=== PATIENT | female | born 1955 | race Caucasian/White ===

== ENCOUNTER 2017-07-22 10:46 | Emergency (ER) | payer OTHER ==
[~2017-07-22] VITALS: Ht 167.6 cm; Wt 79.5 kg
[~2017-07-22 10:46] MED LIST: ABILIFY10 MG PO; ABILIFY15 MG PO; ABILIFY2 MG PO; ADDERALL10 M1 PO; ADDERALL20 MG PO; ADVAIR HFA120 INHALA IH; ADVIL,NUPRIN,M200 MG PO; ALEVE220 M2 PO; AMBIEN10 M1 PO; AMBIEN5 M1 PO; AMPHETAMINE SAL20 MG; ANEXSIA 5-3251 EACH; ASPIR-LOW81 MG PO; ATARAX,VISTARIL25 M1 PO; ATARAX,VISTARIL25 MG; ATROVENT H200 INHALA IH; AZITHROMYCIN250 MG; BENZONATATE100 MG PO; BUSPAR10 MG; BUSPAR10 MG PO; Bentyl PO; CEFDINIR300 MG PO; CIPRO500 MG PO; CLEOCIN300 MG; CYANOCOBAL1000 MCG/2 IM; CYMBALTA20 MG PO; CYMBALTA60 MG; CYMBALTA60 MG PO; Cipro PO; Cymbalta PO; DESYREL 150 MG150 MG PO; DESYREL100 MG PO; DILAUDID4 MG PO; EPIPEN JR.0.15 MG/0. IM; ERGOCALCIF50000 UNIT PO; Ecotrin PO; FLEXERIL10 MG PO; FLONASE16 G1 BOTH NARES; FLUOXETINE HCL20 MG; FLUOXETINE HCL40 MG; FLUOXETINE HCL60 MG PO; Flagyl PO; GABAPENTIN100 MG PO; GABAPENTIN600 MG PO; HYDROCODON-ACE1 EACH; HYDROCODONE-HO473 ML; KLONOPIN0.5 M1 PO; LEVETIRACETAM250 MG PO; LIDOCAINE700 MG TD; LODINE400 MG PO; LOPID600 M1 PO; MACROBID100 MG PO; MEDROL DOSEPAK4 MG PO; MELOXICAM15 MG PO; MORPHINE SULFAT15 M1 PO; MORPHINE SULFAT15 MG PO; MORPHINE SULFAT30 M1 PO; MORPHINE SULFAT30 M2 PO; MOTRIN800 MG PO; MYCOSTATIN 100,60 ML PO; NAPROSYN500 MG PO; NEURONTIN300 MG PO; NEXIUM40 MG PO; NORCO 5/3251 TABLET PO; NORTRIPTYLINE H25 MG PO; OMEPRAZOLE40 M1 PO; OXYCODONE HCL5 M1 PO; OXYCODONE HCL5 MG; OXYCODONE HCL5 MG PO; OXYCODONE-ACET1 EACH; OxyCODONE PO; PEPCID20 MG PO; PERCOCET 5/31 TABLET PO; PRAVACHOL80 MG PO; PRAVASTATIN SOD80 MG PO; PREDNISONE10 MG; PREDNISONE20 MG PO; PREDNISONE5 MG PO; PREMARIN0.625 MG PO; PRILOSEC10 MG PO; PRILOSEC20 MG PO; PROAIR HFA8.5 GM; PROAIR HFA8.5 GM IH; PROMETHAZINE HC25 M1 PO; PROZAC10 M1; PROZAC10 MG PO; PROZAC20 MG PO; PROZAC40 MG PO; PROzac PO; PYRIDIUM200 MG PO; PriLOSEC PO; RESTORIL15 MG PO; ROXICODONE5 MG PO; SIMVASTATIN40 M1 PO; SOMA250 MG PO; SOMA350 M1; SOMA350 MG PO; SONATA10 MG PO; TORADOL10 MG PO; TRAZODONE HCL100 MG PO; Tylenol Regular Stre PO; ULTRAM50 MG PO; VENTOLIN HFA18 GM IH; VITAMIN D50000 UNI4 PO; VOLTAREN75 MG PO; WELLBUTRIN SR150 MG PO; ZALEPLON10 MG PO; ZOCOR40 MG PO; ZOFRAN ODT4 MG PO; ZOFRAN ODT8 MG PO; ZOFRAN4 MG PO; ZOLPIDEM TARTRA10 MG; ZOLPIDEM TARTRAT5 MG; oxyCODONE PO
[2017-07-22 12:08] LABS: EOSINOPHIL (%) 3.4 % (0-5); EOSINOPHIL COUNT 0.2 K/uL (0-0.3); HEMATOCRIT 36.7 % (36.0-46.0); IMMATURE GRANULOCYTE (%) 0.2 % (0.0-0.7); INSTRUMENT ABS NEUTROPHIL CT 3.5 K/uL; LYMPHOCYTE COUNT 2.3 K/uL (1.0-2.8); MCH 29.8 PG (29.0-34.0); MCHC 31.6 G/DL (30.0-36.0); MCV 94.3 FL (83-99); MEAN PLAT.VOLUME 9.8 uM^3 (9.5-12.4); MONOCYTE (%) 6.5 % (3-12); MONOCYTE COUNT 0.4 K/uL (0-0.8); NEUTROPHIL (%) 53.5 % (45-76); NEUTROPHIL COUNT 3.5 K/uL (1.8-6.4); PLATELET COUNT 271 K/uL (156-360); RBC DIS.WIDTH-CV 13.4 % (11.8-14.6); RBC DIS.WIDTH-SD 46.5 % (39-53); RED BLOOD COUNT 3.89 M/uL (3.80-5.20); WHITE BLOOD COUNT 6.5 K/uL (4.1-10.2)
[2017-07-22 12:13] LABS: INTER. NORMALIZED RATIO 0.9; PROTHROMBIN TIME 10.2 SEC (10.2-12.9)
[2017-07-22 12:16] LABS: CHLORIDE 107 mEq/L (99-109); POTASSIUM 3.9 mEq/L (3.7-5.4); PTT 26.8 SEC (25-37); SODIUM 140 mEq/L (136-147)
[2017-07-22 12:19] LABS: GLUCOSE 95 mg/dL (70-99)
[2017-07-22 12:20] LABS: ANION GAP 9 MEQ/L (2-14); TOTAL BILIRUBIN 0.2 mg/dL (0.0-1.0)
[2017-07-22 12:22] LABS: ALKALINE PHOSPHATASE 110 IU/L (3-129); GFR ESTIMATE (CALCULATED) > 59 mL/min/
[2017-07-22 12:23] LABS: UREA NITROGEN (BUN) 11 mg/dL (9-23)
[2017-07-22 12:24] LABS: DIRECT BILIRUBIN 0.1 mg/dL (0.0-0.3)
[2017-07-22 12:26] LABS: LIPASE 74 U/L (1.0-51.0)
[2017-07-22 12:28] LABS: TROP-I INTERPRETATION NEGATIVE; TROPONIN-I < 0.01 ng/mL (0.0-0.30)
[2017-07-22] MEDS ORDERED: IBUPROFEN600 MG PO (14:53)
[2017-07-22] MEDS ORDERED: PREDNISONE50 MG PO (14:53)
[2017-07-22 16:13] VITALS: BP 146/91
== END 2017-07-22 16:14 | disposition home or self-care (01) ==
LOC: EME 10:46
PROVIDERS: Emergency Medicine
DX: R07.89 Other chest pain (principal); J44.9 Chronic obstructive pulmonary disease, unspecified; K21.9 Gastro-esophageal reflux disease without esophagitis; F32.9 Major depressive disorder, single episode, unspecified; F41.9 Anxiety disorder, unspecified; E53.8 Deficiency of other specified B group vitamins; B19.20 Unspecified viral hepatitis C without hepatic coma; Z86.73 Personal history of transient ischemic attack (TIA), and cerebral infarction without residual deficits; Z87.19 Personal history of other diseases of the digestive system; Z87.891 Personal history of nicotine dependence; Z88.0 Allergy status to penicillin
CPT/HCPCS: 71020; 71275; 80048; 80076; 83690; 83880; 84484; 85025; 85610; 85730; 93005; 94640; 99281; 99285; J2270; J2930

== ENCOUNTER 2017-07-27 14:46 | Observation (INO) | payer OTHER ==
[~2017-07-27] VITALS: Ht 167.6 cm; Wt 76.5 kg
[~2017-07-27 14:46] MED LIST changes: +IBUPROFEN600 MG PO; +PREDNISONE50 MG PO
[2017-07-27 15:10] LABS: HEMATOCRIT 37.8 % (36.0-46.0); MCH 30.4 PG (29.0-34.0); MCHC 32.8 G/DL (30.0-36.0); MCV 92.6 FL (83-99); MEAN PLAT.VOLUME 9.6 uM^3 (9.5-12.4); PLATELET COUNT 353 K/uL (156-360); RBC DIS.WIDTH-CV 13.2 % (11.8-14.6); RBC DIS.WIDTH-SD 45.2 % (39-53); RED BLOOD COUNT 4.08 M/uL (3.80-5.20); WHITE BLOOD COUNT 10.2 K/uL (4.1-10.2)
[2017-07-27 15:19] LABS: CHLORIDE 111 mEq/L (99-109); POTASSIUM 3.6 mEq/L (3.7-5.4); SODIUM 138 mEq/L (136-147)
[2017-07-27 15:21] LABS: GLUCOSE 175 mg/dL (70-99)
[2017-07-27 15:22] LABS: ANION GAP 11 MEQ/L (2-14)
[2017-07-27 15:25] LABS: GFR ESTIMATE (CALCULATED) 44 mL/min/
[2017-07-27 15:27] LABS: UREA NITROGEN (BUN) 26 mg/dL (9-23)
[2017-07-27 15:32] LABS: TROP-I INTERPRETATION NEGATIVE; TROPONIN-I < 0.01 ng/mL (0.0-0.30)
[2017-07-27 16:46] LABS: CHLORIDE 111 mEq/L (99-109); POTASSIUM 3.6 mEq/L (3.7-5.4); SODIUM 138 mEq/L (136-147)
[2017-07-27 16:48] LABS: GLUCOSE 178 mg/dL (70-99)
[2017-07-27 16:49] LABS: ANION GAP 12 MEQ/L (2-14)
[2017-07-27 16:52] LABS: ALKALINE PHOSPHATASE 99 IU/L (3-129); GFR ESTIMATE (CALCULATED) 40 mL/min/
[2017-07-27 16:53] LABS: UREA NITROGEN (BUN) 27 mg/dL (9-23)
[2017-07-27 17:00] LABS: TOTAL BILIRUBIN 0.3 mg/dL (0.0-1.0)
[2017-07-27] MEDS ORDERED: IBUPROFEN600 MG PO (18:27)
[2017-07-27] MEDS ORDERED: WELLBUTRIN XL150 MG PO (18:29)
[2017-07-27] MEDS ORDERED: LOVASTATIN20 MG PO (18:29)
[2017-07-27] MEDS ORDERED: OXYCODONE HCL10 MG PO (18:29)
[2017-07-27] MEDS ORDERED: ADDERALL10 MG PO (18:29)
[2017-07-27] MEDS ORDERED: SONATA10 MG PO (18:30)
[2017-07-27 20:38] VITALS: BP 141/72
[2017-07-27 21:11] LABS: TROP-I INTERPRETATION NEGATIVE; TROPONIN-I < 0.01 ng/mL (0.0-0.30)
[2017-07-28 03:12] LABS: HEMATOCRIT 33.5 % (36.0-46.0); MCH 30.6 PG (29.0-34.0); MCHC 32.8 G/DL (30.0-36.0); MCV 93.1 FL (83-99); MEAN PLAT.VOLUME 9.3 uM^3 (9.5-12.4); PLATELET COUNT 319 K/uL (156-360); RBC DIS.WIDTH-CV 13.3 % (11.8-14.6); RBC DIS.WIDTH-SD 45.4 % (39-53); WHITE BLOOD COUNT 9.5 K/uL (4.1-10.2)
[2017-07-28 03:33] LABS: TROP-I INTERPRETATION NEGATIVE; TROPONIN-I < 0.01 ng/mL (0.0-0.30)
[2017-07-28 04:27] LABS: HEMATOCRIT 33.4 % (36.0-46.0); MCH 30.2 PG (29.0-34.0); MCV 94.4 FL (83-99); MEAN PLAT.VOLUME 9.5 uM^3 (9.5-12.4); PLATELET COUNT 304 K/uL (156-360); RBC DIS.WIDTH-CV 13.3 % (11.8-14.6); RED BLOOD COUNT 3.54 M/uL (3.80-5.20); WHITE BLOOD COUNT 9.6 K/uL (4.1-10.2)
[2017-07-28 04:42] VITALS: BP 124/81
[2017-07-28 06:21] LABS: CHLORIDE 111 mEq/L (99-109); SODIUM 141 mEq/L (136-147)
[2017-07-28 06:24] LABS: ANION GAP 12 MEQ/L (2-14)
[2017-07-28 06:27] LABS: ALKALINE PHOSPHATASE 86 IU/L (3-129); GFR ESTIMATE (CALCULATED) > 59 mL/min/
[2017-07-28 06:28] LABS: UREA NITROGEN (BUN) 24 mg/dL (9-23)
[2017-07-28 06:40] LABS: GLUCOSE 93 mg/dL (70-99); POTASSIUM 4.7 mEq/L (3.7-5.4); TOTAL BILIRUBIN 0.2 mg/dL (0.0-1.0)
[2017-07-28 07:23] VITALS: BP 135/85
[2017-07-28] MEDS ORDERED: IBUPROFEN600 MG PO (09:39)
[2017-07-28] MEDS ORDERED: ZITHROMAX500 MG PO (09:40)
[2017-07-28] MEDS ORDERED: TESSALON PERLE100 MG PO (09:41)
[2017-07-28 12:02] VITALS: BP 141/67
== END 2017-07-28 14:00 | disposition home or self-care (01) ==
LOC: EME 14:46 → EDOF 18:10 → 5WEST 18:10 → ENRESERV 18:15 → 5WEST 20:25
PROVIDERS: Emergency Medicine; Internal Medicine
DX: R07.9 Chest pain, unspecified (principal); R06.09 Other forms of dyspnea; R94.31 Abnormal electrocardiogram [ECG] [EKG]; E87.6 Hypokalemia; N17.9 Acute kidney failure, unspecified; G40.909 Epilepsy, unspecified, not intractable, without status epilepticus; F41.9 Anxiety disorder, unspecified; E78.00 Pure hypercholesterolemia, unspecified; K21.9 Gastro-esophageal reflux disease without esophagitis; R73.9 Hyperglycemia, unspecified; Z79.52 Long term (current) use of systemic steroids; G89.29 Other chronic pain; F32.9 Major depressive disorder, single episode, unspecified; Z86.19 Personal history of other infectious and parasitic diseases; Z98.1 Arthrodesis status; Z86.73 Personal history of transient ischemic attack (TIA), and cerebral infarction without residual deficits; Z79.891 Long term (current) use of opiate analgesic; Z87.891 Personal history of nicotine dependence; Z87.19 Personal history of other diseases of the digestive system; Z90.710 Acquired absence of both cervix and uterus; Z82.49 Family history of ischemic heart disease and other diseases of the circulatory system; Z82.5 Family history of asthma and other chronic lower respiratory diseases; Z88.0 Allergy status to penicillin; Z88.8 Allergy status to other drugs, medicaments and biological substances
CPT/HCPCS: 71020; 72070; 80048; 80053; 80306 90; 83880; 84484; 85027; 85379; 93005; 94640; 99281; 99285; G0378; J1644; J1885; J2270; J7030

== ENCOUNTER 2017-08-15 15:31 | Emergency (ER) | payer OTHER ==
[~2017-08-15] VITALS: Ht 167.6 cm; Wt 77.0 kg
[~2017-08-15 15:31] MED LIST changes: +ADDERALL10 MG PO; +LOVASTATIN20 MG PO; +OXYCODONE HCL10 MG PO; +TESSALON PERLE100 MG PO; +WELLBUTRIN XL150 MG PO; +ZITHROMAX500 MG PO
[2017-08-15 16:41] LABS: HEMATOCRIT 35.2 % (36.0-46.0); MCH 30.4 PG (29.0-34.0); MCHC 33.5 G/DL (30.0-36.0); MCV 90.7 FL (83-99); PLATELET COUNT 270 K/uL (156-360); RBC DIS.WIDTH-CV 12.8 % (11.8-14.6); RBC DIS.WIDTH-SD 42.5 % (39-53); RED BLOOD COUNT 3.88 M/uL (3.80-5.20); WHITE BLOOD COUNT 7.7 K/uL (4.1-10.2)
[2017-08-15 16:52] LABS: CHLORIDE 109 mEq/L (99-109); POTASSIUM 4.2 mEq/L (3.7-5.4); SODIUM 142 mEq/L (136-147)
[2017-08-15 16:53] LABS: INFLUENZA A VIRAL ANTIGEN NEGATIVE; INFLUENZA B VIRAL ANTIGEN NEGATIVE
[2017-08-15 16:54] LABS: GLUCOSE 96 mg/dL (70-99)
[2017-08-15 16:55] LABS: ANION GAP 10 MEQ/L (2-14)
[2017-08-15 16:58] LABS: GFR ESTIMATE (CALCULATED) 48 mL/min/
[2017-08-15 16:59] LABS: UREA NITROGEN (BUN) 11 mg/dL (9-23)
[2017-08-15] MEDS ORDERED: TESSALON PERLE100 MG PO (19:40)
[2017-08-15] MEDS ORDERED: PREDNISONE20 MG PO (19:40)
[2017-08-15] MEDS ORDERED: HYCODAN SYRUP480 ML PO (19:40)
[2017-08-15] MEDS ORDERED: VENTOLIN HFA18 GM IH (19:40)
[2017-08-15 20:17] VITALS: BP 153/99
== END 2017-08-15 20:17 | disposition home or self-care (01) ==
LOC: EME 15:31
DX: J44.1 Chronic obstructive pulmonary disease with (acute) exacerbation (principal); G89.29 Other chronic pain; J02.9 Acute pharyngitis, unspecified; R11.2 Nausea with vomiting, unspecified; R19.7 Diarrhea, unspecified; Z90.710 Acquired absence of both cervix and uterus; Z87.891 Personal history of nicotine dependence
CPT/HCPCS: 71020; 80048; 85027; 87502; 94640; 99281; 99285; J2270

== ENCOUNTER 2017-09-15 17:02 | Emergency (ER) | payer OTHER ==
[~2017-09-15] VITALS: Ht 167.6 cm; Wt 78.7 kg
[~2017-09-15 17:02] MED LIST changes: +HYCODAN SYRUP480 ML PO
[2017-09-15 17:55] LABS: HEMATOCRIT 34.6 % (36.0-46.0); MCH 30.3 PG (29.0-34.0); MCHC 32.7 G/DL (30.0-36.0); MCV 92.8 FL (83-99); MEAN PLAT.VOLUME 9.2 uM^3 (9.5-12.4); PLATELET COUNT 265 K/uL (156-360); RBC DIS.WIDTH-CV 13.4 % (11.8-14.6); RBC DIS.WIDTH-SD 45.5 % (39-53); RED BLOOD COUNT 3.73 M/uL (3.80-5.20); WHITE BLOOD COUNT 5.5 K/uL (4.1-10.2)
[2017-09-15 18:06] LABS: CHLORIDE 112 mEq/L (99-109); POTASSIUM 3.8 mEq/L (3.7-5.4); SODIUM 143 mEq/L (136-147)
[2017-09-15 18:07] LABS: GLUCOSE 79 mg/dL (70-99)
[2017-09-15 18:09] LABS: ANION GAP 8 MEQ/L (2-14)
[2017-09-15 18:11] LABS: GFR ESTIMATE (CALCULATED) > 59 mL/min/
[2017-09-15 18:12] LABS: UREA NITROGEN (BUN) 12 mg/dL (9-23)
[2017-09-15 18:17] LABS: TROP-I INTERPRETATION NEGATIVE; TROPONIN-I < 0.01 ng/mL (0.0-0.30)
[2017-09-15 21:12] LABS: TROP-I INTERPRETATION NEGATIVE; TROPONIN-I < 0.01 ng/mL (0.0-0.30)
[2017-09-15] MEDS ORDERED: ZITHROMAX Z-PA250 MG PO (21:45)
[2017-09-15] MEDS ORDERED: PROAIR HFA8.5 GM IH (21:45)
[2017-09-15] MEDS ORDERED: PREDNISONE20 MG PO (21:45)
[2017-09-15 22:39] VITALS: BP 183/105
== END 2017-09-15 22:40 | disposition home or self-care (01) ==
LOC: EME 17:02
PROVIDERS: Physician Assistant
DX: J40 Bronchitis, not specified as acute or chronic (principal); R07.81 Pleurodynia; J44.9 Chronic obstructive pulmonary disease, unspecified; Z87.891 Personal history of nicotine dependence; R03.0 Elevated blood-pressure reading, without diagnosis of hypertension; K21.9 Gastro-esophageal reflux disease without esophagitis; F32.9 Major depressive disorder, single episode, unspecified; F41.9 Anxiety disorder, unspecified; R56.9 Unspecified convulsions; B19.20 Unspecified viral hepatitis C without hepatic coma; Z86.73 Personal history of transient ischemic attack (TIA), and cerebral infarction without residual deficits; Z87.19 Personal history of other diseases of the digestive system; Z88.1 Allergy status to other antibiotic agents; Z88.6 Allergy status to analgesic agent
CPT/HCPCS: 71020; 80048; 84484; 85027; 85379; 93005; 94640 76; 99281; 99284; J7512

== ENCOUNTER 2018-01-23 10:40 | Emergency (ER) | payer OTHER ==
[~2018-01-23] VITALS: Ht 157.5 cm; Wt 79.5 kg
[~2018-01-23 10:40] MED LIST changes: +ZITHROMAX Z-PA250 MG PO
[2018-01-23 10:51] VITALS: BP 102/81
== END 2018-01-23 14:00 | disposition left against medical advice (07) ==
LOC: EME 10:40
DX: M25.551 Pain in right hip (principal); M79.604 Pain in right leg; Z91.81 History of falling; Z53.21 Procedure and treatment not carried out due to patient leaving prior to being seen by health care provider

== ENCOUNTER 2018-03-10 15:40 | Observation (INO) | payer OTHER ==
[~2018-03-10] VITALS: Ht 167.6 cm; Wt 73.9 kg
[2018-03-10 16:39] LABS: APPEARANCE SL.HAZY ((CLEAR)); BILIRUBIN NEGATIVE; BLOOD NEGATIVE; COLOR YELLOW ((YELLOW)); GLUCOSE (STRIP) NEGATIVE; KETONES NEGATIVE; LEUKOCYTES NEGATIVE; NITRITE NEGATIVE; PROTEIN (STRIP) NEGATIVE; SPECIFIC GRAVITY 1.011 (1.000-1.030); UROBILINOGEN 0.2 MG/DL (0.2-1.0)
[2018-03-10 16:51] LABS: BACTERIA RARE /HPF; EPITHELIAL CELLS 1+ /HPF; MUCUS TRACE /LPF; RED BLOOD CELLS 0-5 /HPF (0-5); WHITE BLOOD CELLS 0-5 /HPF (0-5)
[2018-03-10 16:56] LABS: BASOPHIL (%) 0.2 % (0-1); EOSINOPHIL (%) 0.1 % (0-5); HEMATOCRIT 39.4 % (36.0-46.0); HEMOGLOBIN 13.1 G/DL (11.9-15.5); IMMATURE GRANULOCYTE (%) 0.2 % (0.0-0.7); LYMPHOCYTE (%) 21.7 % (15-42); LYMPHOCYTE COUNT 2.3 K/uL (1.0-2.8); MCH 29.7 PG (29.0-34.0); MCHC 33.2 G/DL (30.0-36.0); MCV 89.3 FL (83-99); MONOCYTE (%) 4.7 % (3-12); MONOCYTE COUNT 0.5 K/uL (0-0.8); NEUTROPHIL (%) 73.1 % (45-76); NEUTROPHIL COUNT 7.9 K/uL (1.8-6.4); PLATELET COUNT 325 K/uL (156-360); RBC DIS.WIDTH-CV 13.9 % (11.8-14.6); RBC DIS.WIDTH-SD 45.4 % (39-53); RED BLOOD COUNT 4.41 M/uL (3.80-5.20); WHITE BLOOD COUNT 10.8 K/uL (4.1-10.2)
[2018-03-10 17:05] LABS: CHLORIDE 106 mEq/L (99-109); POTASSIUM 3.9 mEq/L (3.7-5.4); SODIUM 139 mEq/L (136-147)
[2018-03-10 17:06] LABS: GLUCOSE 97 mg/dL (70-99)
[2018-03-10 17:10] LABS: CREATININE 1.1 mg/dL (0.6-1.3); GFR ESTIMATE (CALCULATED) 53 mL/min/
[2018-03-10 17:11] LABS: UREA NITROGEN (BUN) 27 mg/dL (9-23)
[2018-03-10 17:37] LABS: TROP-I INTERPRETATION NEGATIVE; TROPONIN-I < 0.01 ng/mL (0.0-0.30)
[2018-03-10] MEDS ORDERED: FLEXERIL10 MG PO (19:18)
[2018-03-10] MEDS ORDERED: MOTRIN600 MG PO (19:18)
[2018-03-10 23:42] VITALS: BP 131/71
[2018-03-10] MEDS ORDERED: FLUOXETINE HCL20 MG PO (23:44)
[2018-03-10] MEDS ORDERED: DULOXETINE HCL40 MG PO (23:45)
[2018-03-10] MEDS ORDERED: ARIPIPRAZOLE15 MG PO (23:45)
[2018-03-10] MEDS ORDERED: RANITIDINE HCL150 MG PO (23:46)
[2018-03-10] MEDS ORDERED: BUPROPION XL150 MG PO (23:46)
[2018-03-10] MEDS ORDERED: LOPERAMIDE2 MG PO (23:48)
[2018-03-11 02:45] LABS: BENZODIAZEPINES, URINE SCREEN Negative (200 ng/mL); ETHANOL (SERUM/URINE) Negative
[2018-03-11 05:09] VITALS: BP 104/69
[2018-03-11 07:17] VITALS: BP 105/64
[2018-03-11 12:16] VITALS: BP 97/52
[2018-03-11 20:39] VITALS: BP 90/56
[2018-03-11] MEDS ORDERED: AMBIEN10 MG PO (22:14)
[2018-03-11] MEDS ORDERED: SEROQUEL50 MG PO (22:15)
[2018-03-11] MEDS ORDERED: SONATA10 MG PO (23:24)
[2018-03-12 04:00] VITALS: BP 110/64
[2018-03-12 07:48] VITALS: BP 119/89
== END 2018-03-12 11:28 | disposition home or self-care (01) ==
LOC: EXP 15:40 → EME 15:40 → EDOF 22:51 → ENRESERV 22:54 → 4SOUTH 23:35
PROVIDERS: Physician Assistant
DX: G97.1 Other reaction to spinal and lumbar puncture (principal); R51 Headache; R11.2 Nausea with vomiting, unspecified; R19.7 Diarrhea, unspecified; G89.29 Other chronic pain; Z98.1 Arthrodesis status; F60.9 Personality disorder, unspecified; F32.9 Major depressive disorder, single episode, unspecified; F41.9 Anxiety disorder, unspecified; B19.20 Unspecified viral hepatitis C without hepatic coma; J44.9 Chronic obstructive pulmonary disease, unspecified; K44.9 Diaphragmatic hernia without obstruction or gangrene; K21.9 Gastro-esophageal reflux disease without esophagitis; F19.11 Other psychoactive substance abuse, in remission; Z87.19 Personal history of other diseases of the digestive system; Z90.710 Acquired absence of both cervix and uterus; Z87.891 Personal history of nicotine dependence; F10.21 Alcohol dependence, in remission; F12.90 Cannabis use, unspecified, uncomplicated; Z88.0 Allergy status to penicillin; Z88.5 Allergy status to narcotic agent; Z88.8 Allergy status to other drugs, medicaments and biological substances
CPT/HCPCS: 70450; 72141; 80048; 80306 90; 81003; 84484; 85025; 85651; 86140; 87493; 93005; 99281; 99285; G0378; G0480; J0780; J1100; J1200; J1644; J1885; J2765; J7030; J7050

== ENCOUNTER 2018-04-22 21:08 | Emergency (ER) | payer OTHER ==
[~2018-04-22] VITALS: Ht 167.6 cm; Wt 71.8 kg
[~2018-04-22 21:08] MED LIST changes: +AMBIEN10 MG PO; +ARIPIPRAZOLE15 MG PO; +BUPROPION XL150 MG PO; +DULOXETINE HCL40 MG PO; +FLUOXETINE HCL20 MG PO; +LOPERAMIDE2 MG PO; +MOTRIN600 MG PO; +RANITIDINE HCL150 MG PO; +SEROQUEL50 MG PO
[2018-04-22 22:01] LABS: HEMATOCRIT 36.4 % (36.0-46.0); HEMOGLOBIN 12.3 G/DL (11.9-15.5); MCH 30.8 PG (29.0-34.0); MCHC 33.8 G/DL (30.0-36.0); PLATELET COUNT 182 K/uL (156-360); RBC DIS.WIDTH-CV 14.9 % (11.8-14.6); WHITE BLOOD COUNT 7.8 K/uL (4.1-10.2)
[2018-04-22 22:08] LABS: ALBUMIN 3.9 g/dL (3.2-4.8)
[2018-04-22 22:09] LABS: CHLORIDE 102 mEq/L (99-109); POTASSIUM 3.9 mEq/L (3.7-5.4); SODIUM 139 mEq/L (136-147)
[2018-04-22 22:11] LABS: GLUCOSE 96 mg/dL (70-99); TOTAL PROTEIN 7.2 g/dL (6.4-8.3)
[2018-04-22 22:13] LABS: TOTAL BILIRUBIN 0.4 mg/dL (0.0-1.0)
[2018-04-22 22:14] LABS: ALKALINE PHOSPHATASE 86 IU/L (3-129)
[2018-04-22 22:15] LABS: GFR ESTIMATE (CALCULATED) > 59 mL/min/
[2018-04-22 22:16] LABS: AST (GOT) 24 IU/L (2-34); UREA NITROGEN (BUN) 11 mg/dL (9-23)
[2018-04-22 22:18] LABS: ALT (GPT) 23 IU/L (3-49)
[2018-04-22 22:23] LABS: TROP-I INTERPRETATION NEGATIVE; TROPONIN-I < 0.01 ng/mL (0.0-0.30)
[2018-04-23 00:46] LABS: APPEARANCE CLEAR ((CLEAR)); BILIRUBIN NEGATIVE; BLOOD NEGATIVE; COLOR YELLOW ((YELLOW)); GLUCOSE (STRIP) NEGATIVE; KETONES NEGATIVE; LEUKOCYTES NEGATIVE; NITRITE NEGATIVE; PROTEIN (STRIP) NEGATIVE; SPECIFIC GRAVITY 1.005 (1.000-1.030); UCUL ADDED? NO; UROBILINOGEN 0.2 MG/DL (0.2-1.0)
[2018-04-23] MEDS ORDERED: LEVAQUIN750 MG PO (02:01)
[2018-04-23] MEDS ORDERED: PROVENTIL HFA6.7 GM IH (02:01)
[2018-04-23 02:37] VITALS: BP 108/70
== END 2018-04-23 02:48 | disposition home or self-care (01) ==
LOC: EME 21:08
PROVIDERS: Emergency Medicine
DX: J44.1 Chronic obstructive pulmonary disease with (acute) exacerbation (principal); K21.9 Gastro-esophageal reflux disease without esophagitis; R56.9 Unspecified convulsions; F41.9 Anxiety disorder, unspecified; F32.9 Major depressive disorder, single episode, unspecified; Z90.710 Acquired absence of both cervix and uterus; Z87.19 Personal history of other diseases of the digestive system; Z86.73 Personal history of transient ischemic attack (TIA), and cerebral infarction without residual deficits; Z87.891 Personal history of nicotine dependence; Z88.5 Allergy status to narcotic agent; Z88.0 Allergy status to penicillin
CPT/HCPCS: 71046; 74177; 80053; 81003; 84484; 85027; 93005; 94640; 99281; 99285; J2405; J2765; J3010